=== PATIENT | male | born 1960 | race Caucasian/White ===

== ENCOUNTER → 2021-09-25 | Outpatient (CLI) | payer MEDICARE, OTHER | LOC: KOH-I 13:22 | DX: N28.9 Disorder of kidney and ureter, unspecified (principal) | CPT/HCPCS: 76775 ==

== ENCOUNTER → 2022-03-30 | Outpatient (CLI) | payer MEDICARE ==
[2022-03-31 11:14] LABS: CREATININE, URINE 400.3 mg/dL (Not Estab.)
== END ==
LOC: LAB 14:08
PROVIDERS: Internal Medicine Nephrology
DX: N18.31 Chronic kidney disease, stage 3a (principal)
CPT/HCPCS: 36415; 80048; 81001; 82043; 82570; 84156